=== PATIENT | male | born 1960 | race Two or more races ===

== ENCOUNTER 2018-11-28 14:50 | Outpatient (REF) | payer OTHER, SELFPAY ==
[2018-11-28 21:29] LABS: Anion Gap 14.1 mmol/L (3-11); BUN 13 mg/dL (7-18); CO2 25.9 mmol/L (21.0-32.0); CREATININE 0.93 mg/dL (0.70-1.30); Chloride 99 mmol/L (98-107); Glucose 92 mg/dL (70-100); Potassium 3.4 mmol/L (3.5-5.1); Sodium 139 mmol/L (136-145)
== END 2018-11-28 15:10 ==
LOC: NCHCN 14:50
PROVIDERS: PCP Internal Medicine; Visit Provider Nurse Practitioner Family
DX: I10 Essential (primary) hypertension (principal); E11.9 Type 2 diabetes mellitus without complications
CPT/HCPCS: 80048

== ENCOUNTER 2019-11-24 19:29 | Outpatient (REF) | payer OTHER, SELFPAY ==
[2019-11-24 21:21] LABS: ALT 34 U/L (16-63); AST 24 U/L (15-37); Albumin 4.5 g/dL (3.4-5.0); Alkaline Phosphatase 55 U/L (46-116); Anion Gap 11.1 mmol/L (3-11); BUN 16 mg/dL (7-18); Bilirubin, Total 0.7 mg/dL (0.2-1.0); CO2 25.9 mmol/L (21.0-32.0); CREATININE 0.97 mg/dL (0.70-1.30); Calcium 9.3 mg/dL (8.5-10.1); Calculated LDL 133 mg/dL (<100); Chloride 103 mmol/L (98-107); Cholesterol 237 mg/dL (<200); Glucose 95 mg/dL (74-106); HDL Cholesterol 95 mg/dL (40-60); Potassium 3.5 mmol/L (3.5-5.1); Sodium 140 mmol/L (136-145); Total Protein 7.5 g/dL (6.4-8.2); Triglyceride 49 mg/dL (<150)
== END 2019-11-24 19:49 ==
LOC: NCHCN 19:29
PROVIDERS: PCP Internal Medicine; Visit Provider Nurse Practitioner Family
DX: I10 Essential (primary) hypertension (principal); R73.03 Prediabetes
CPT/HCPCS: 80053; 80061

== ENCOUNTER 2020-09-13 19:22 | Outpatient (REF) | payer OTHER, SELFPAY ==
[2020-09-13 21:23] LABS: Hemoglobin A1C 5.8 % (<5.7)
[2020-09-13 21:47] LABS: ALT 36 U/L (16-63); AST 21 U/L (15-37); Albumin 4.5 g/dL (3.4-5.0); Alkaline Phosphatase 74 U/L (46-116); Anion Gap 10.6 mmol/L (3-11); BUN 16 mg/dL (7-18); Bilirubin, Total 0.7 mg/dL (0.2-1.0); CO2 27.4 mmol/L (21.0-32.0); Calcium 9.1 mg/dL (8.5-10.1); Calculated LDL 138 mg/dL (<100); Chloride 103 mmol/L (98-107); Cholesterol 248 mg/dL (<200); Glucose 107 mg/dL (74-106); HDL Cholesterol 83 mg/dL (40-60); Potassium 3.7 mmol/L (3.5-5.1); Sodium 141 mmol/L (136-145); Total Protein 7.5 g/dL (6.4-8.2); Triglyceride 137 mg/dL (<150)
[2020-09-14 16:50] LABS: PSA, Screening 1.1 ng/mL (0.0-3.5)
== END 2020-09-13 19:23 | disposition home or self-care (01) ==
LOC: NCHCN 19:22
PROVIDERS: PCP Internal Medicine; Visit Provider Nurse Practitioner Family
DX: I10 Essential (primary) hypertension (principal); E66.3 Overweight; Z12.5 Encounter for screening for malignant neoplasm of prostate; Z80.42 Family history of malignant neoplasm of prostate; Z13.1 Encounter for screening for diabetes mellitus
CPT/HCPCS: 80053; 80061; 84153; 83036

== ENCOUNTER 2021-10-20 08:13 | Outpatient (REF) | payer OTHER, SELFPAY ==
[2021-10-20 14:43] LABS: Anion Gap 9.9 mmol/L (3-11); BUN 17 mg/dL (7-18); CO2 28.1 mmol/L (21.0-32.0); CREATININE 1.1 mg/dL (0.70-1.30); Calcium 9.1 mg/dL (8.5-10.1); Calculated LDL 155 mg/dL (<100); Chloride 101 mmol/L (98-107); Cholesterol 251 mg/dL (<200); Glucose 140 mg/dL (74-106); HDL Cholesterol 88 mg/dL (40-60); Potassium 4.2 mmol/L (3.5-5.1); Sodium 139 mmol/L (136-145); Triglyceride 42 mg/dL (<150)
[2021-10-20 22:40] LABS: PSA, Screening 1.3 ng/mL (<=4.5)
== END 2021-10-20 08:14 | disposition home or self-care (01) ==
LOC: NCHCN 08:13
PROVIDERS: PCP Internal Medicine; Visit Provider Nurse Practitioner Family
DX: E78.5 Hyperlipidemia, unspecified (principal); R73.03 Prediabetes; I10 Essential (primary) hypertension; E66.9 Obesity, unspecified; Z12.5 Encounter for screening for malignant neoplasm of prostate; Z80.42 Family history of malignant neoplasm of prostate
CPT/HCPCS: 80048; 80061; 84153

== ENCOUNTER 2022-10-25 09:40 | Outpatient (REF) | payer OTHER, SELFPAY ==
[2022-10-25 15:27] LABS: Hemoglobin A1C 5.7 % (<5.7)
[2022-10-25 15:58] LABS: Anion Gap 7.4 mmol/L (3-11); BUN 14 mg/dL (7-18); CO2 29.6 mmol/L (21.0-32.0); CREATININE 1.2 mg/dL (0.70-1.30); Calcium 9.8 mg/dL (8.5-10.1); Calculated LDL 158 mg/dL (<100); Chloride 104 mmol/L (98-107); Cholesterol 248 mg/dL (<200); Glucose 140 mg/dL (74-106); HDL Cholesterol 81 mg/dL (40-60); Potassium 5.1 mmol/L (3.5-5.1); Sodium 141 mmol/L (136-145); Triglyceride 49 mg/dL (<150)
[2022-10-26 11:18] LABS: PSA, Screening 1.2 ng/mL (<=4.5)
== END 2022-10-25 09:41 | disposition home or self-care (01) ==
LOC: NCHCN 09:40
PROVIDERS: PCP Internal Medicine; Visit Provider Nurse Practitioner Family
DX: Z00.00 Encounter for general adult medical examination without abnormal findings (principal); E78.5 Hyperlipidemia, unspecified; R73.03 Prediabetes; I10 Essential (primary) hypertension; E66.9 Obesity, unspecified
CPT/HCPCS: 80048; 80061; 84153; 83036

== ENCOUNTER 2022-11-30 09:54 | Outpatient (REF) | payer OTHER, SELFPAY ==
[2022-11-30 15:44] LABS: Bilirubin Negative (Negative); Blood Negative (Negative); Clarity Clear (Clear); Glucose Negative (Negative); Ketones Negative (Negative); Leukocyte Esterase Negative (Negative); Nitrite Negative (Negative); Urobilinogen 0.2 mg/dL (Up to 0.2)
[2022-11-30 15:56] LABS: COMMENT (LAB VIEW ONLY) 61.88 mg/dL; Microalb ug/mg Crea 7.1 ug/mg Cr
== END 2022-11-30 09:55 | disposition home or self-care (01) ==
LOC: NCHCN 09:54
PROVIDERS: PCP Internal Medicine; Visit Provider Nurse Practitioner Family
DX: I10 Essential (primary) hypertension (principal); R73.03 Prediabetes; E78.5 Hyperlipidemia, unspecified
CPT/HCPCS: 81003; 82043; 82570

== ENCOUNTER 2023-05-28 10:28 | Outpatient (REF) | payer OTHER, SELFPAY ==
[2023-05-28 15:16] LABS: Hemoglobin A1C 5.7 % (<5.7)
== END 2023-05-28 10:29 | disposition home or self-care (01) ==
LOC: NCHCN 10:28
PROVIDERS: PCP Internal Medicine; Visit Provider Nurse Practitioner Family
DX: R73.03 Prediabetes (principal)
CPT/HCPCS: 83036

== ENCOUNTER 2023-06-26 15:36 | Outpatient (CLI) | payer OTHER, SELFPAY ==
--- NOTE | 2023-06-26 14:30 | DI.RAD_ITS ---
Exam(s) XR SHOULDER LT COMPLETE 2+V EXAM: XR SHOULDER LT COMPLETE 2+V CLINICAL HISTORY: LEFT SHOULDER PAIN. TECHNIQUE: 2D digital imaging was performed of the left shoulder. Two images were obtained. AP and Grashey views were obtained. COMPARISON: No exams were available for comparison FINDINGS: BONES: No acute fracture is present. No bony destructive lesion is seen. JOINTS: No dislocation present. The acromioclavicular and glenohumeral joints are well maintained. SOFT TISSUE: The visualized lungs are clear. IMPRESSION: Unremarkable radiographs of the left shoulder. DATA REPOSITORY: RADIATION DOSE DELIVERED:
--- NOTE | 2023-06-26 14:30 | DI.RAD_ITS ---
Exam(s) XR SHOULDER RT COMPLETE 2+V EXAM: XR SHOULDER RT COMPLETE 2+V CLINICAL HISTORY: RIGHT SHOULDER PAIN. TECHNIQUE: 2D digital imaging was performed of the right shoulder. Two images were obtained. AP an d Grashey views were obtained. COMPARISON: No exams were available for comparison FINDINGS: BONES: No acute fracture is present. No bony destructive lesion is seen. JOINTS: No dislocation present. The joint spaces are well maintained. SOFT TISSUE: The visualized lung is clear. IMPRESSION: Unremarkable radiographs of the right shoulder. DATA REPOSITORY: RADIATION DOSE DELIVERED:
== END 2023-06-26 15:37 | disposition home or self-care (01) ==
LOC: DIORS 15:37
PROVIDERS: PCP Internal Medicine; Visit Provider Student in an Organized Health Care Education/Training Program
DX: M25.512 Pain in left shoulder (principal); M25.511 Pain in right shoulder
CPT/HCPCS: 73030

== ENCOUNTER → 2023-07-02 01:58 | Outpatient (CLI) | payer OTHER, SELFPAY ==
--- NOTE | 2023-07-02 06:45 | DI.MRI_ITS ---
Exam(s) MR UPPER JOINT RT WO EXAM: MR UPPER JOINT RT WO CLINICAL HISTORY: R SHOULDER PAIN,EVAL RUPTURE RT PROX BICEPS TENDON,[id number]. TECHNIQUE: Multiplanar multisequence MRI was performed. COMPARISON: CR XR SHOULDER RT COMPLETE 2+V from 06/26/2023 FINDINGS: BONES: There is no fracture or contusion pattern. There is a subchondral cysts seen in the lesser tub erosity. There is mild edema seen in the greater tuberosity. JOINTS: Mild degenerative changes are seen at the acromioclavicular joint. The glenohumeral joint is normal. TENDONS: Supraspinatus: There is tendinosis of the supraspinatus tendon. There is hyperintense signal seen at the anterior aspect of the supraspinatus tendon at its insertion site consistent with a partial tear . Infraspinatus: Mild tendinosis, no evidence of a tear. Subscapularis: There is tendinosis of the subscapularis tendon. Teres Minor: Unremarkable. Biceps and [place]: There is a tear of the proximal long head of the biceps with tendon fragment seen at the biceps anchor. Only the proximal 2 cm is seen. There is edema around the proximal residual t endon in the region of the rotator interval. The tendon is not visualized in the bicipital groove. MUSCLES: Unremarkable. GLENOID LABRUM: There is some irregularity of the posterior superior labrum. This may represent a te ar or degeneration. SOFT TISSUES: Unremarkable. LIGAMENTS: Unremarkable. OTHER: There is a small amount of fluid seen in the subacromial subdeltoid bursa. IMPRESSION: 1. Tear of the proximal long head of the biceps. Only proximally 2 cm of the tendon is seen near the region of the biceps anchor. There is surrounding edema including within the region of the rotator interval. 2. Partial articular surface tear of the supraspinatus tendon. 3. Tendinosis of the supraspinatus, infraspinatus and subscapularis tendons. 4. Degenerative changes seen at the acromioclavicular joint. DATA REPOSITORY:
== END ==
PROVIDERS: PCP Internal Medicine; Visit Provider Student in an Organized Health Care Education/Training Program
DX: S46.211A Strain of muscle, fascia and tendon of other parts of biceps, right arm, initial encounter (principal)
CPT/HCPCS: 73221

== ENCOUNTER 2023-10-18 18:55 | Outpatient (REF) | payer OTHER, SELFPAY ==
[2023-10-18 16:01] LABS: ALT 35 U/L (16-63); AST 24 U/L (15-37); Albumin 4.8 g/dL (3.4-5.0); Alkaline Phosphatase 77 U/L (46-116); Anion Gap 12.1 mmol/L (3-11); BUN 15 mg/dL (7-18); CO2 27.9 mmol/L (21.0-32.0); CREATININE 1.1 mg/dL (0.70-1.30); Calcium 9.9 mg/dL (8.5-10.1); Calculated LDL 157 mg/dL (<100); Chloride 102 mmol/L (98-107); Cholesterol 258 mg/dL (<200); Glucose 150 mg/dL (74-106); HDL Cholesterol 87 mg/dL (40-60); Potassium 4.7 mmol/L (3.5-5.1); Sodium 142 mmol/L (136-145); Total Protein 8.2 g/dL (6.4-8.2); Triglyceride 70 mg/dL (<150)
[2023-10-18 17:15] LABS: COMMENT (LAB VIEW ONLY) 24.62 mg/dL
[2023-10-18 17:30] LABS: Bilirubin Negative (Negative); Blood Negative (Negative); Clarity Clear (Clear); Glucose Negative (Negative); Ketones Negative (Negative); Leukocyte Esterase Negative (Negative); Nitrite Negative (Negative); Specific Gravity 1.015 (1.005-1.025); Urobilinogen 0.2 mg/dL (Up to 0.2)
--- OUTSIDE RECORDS SUMMARY | 2023-10-18 19:00 | XMS_ITS | Continuity of Care Document ---
Author Organization [place] - [facility] Address [address] [place] [address] Assessment No assessment recorded. Plan of Treatment Reminders Order Date Submit Date Provider Last Modified By Organization Details Last Modified Time Details Appointments Nurse Visit 2023 08:30A M [place] Nursing Staff Not available Not available Not available Follow Up 2023 07:30A M KAVITHA SAAVEDRA Not available Not available Not available DOT/ICC Physical 2024 07:30A M KAVITHA SAAVEDRA Not available Not available Not available Lab None recorded. Referral None recorded. Procedures None recorded. Surgeries None recorded. Imaging None recorded. Medication Orders None recorded. Patient TargetsNo targets recorded. Patient InstructionsNo instructions recorded. Reason for Referral Orthopedic Surgeon Referral for Bilateral shoulder joint pain Referring Physician: Kavitha Saavedra Family Medicine, Encounter Date: 05/29/2023 Problems Name Status Onset Date Resolution Date Notes Provider Name and Address Organization Details Recorded Time Obesity Active 201909/13/2020 - Comments only - Kavitha Saavedra HYDRAULIC JACK ADJUSTER - Enocuraged weight loss through diet and exercise. Check A1C today. Problem Code: E66.9; Problem Code Type: ICD-10; KAVITHA SAAVEDRA APRN [address], [place], [address] , [facility] 04:37:58 Family history of malignant neoplasm of prostate Active 202009/13/2020 - Comments only - Kavitha Saavedra HYDRAULIC JACK ADJUSTER - Check PSA today. Discussed reliability of the test and referral as indicated. Problem Code: Z80.42; Problem Code Type: ICD-10; [address], [place], [address] , [facility] 4 04:37:58 Hyperlipidemia Active 2020 Problem Code: E78.5; Problem Code Type: ICD-10; [address], [place], [address] , [facility] 4 04:37:58 Seasonal allergic rhinitis Active 2021 Problem Code: J30.2; Problem Code Type: ICD-10; [address], [facility] [address] , [facility] 4 04:37:58 General examination of patient Active 201410/23/2022 - Comments only - Kavitha Saavedra HYDRAULIC JACK ADJUSTER - cleared for 1 year based on having HTN. Needs glasses. Certificate provided. Problem Code: Z00.8; Problem Code Type: ICD-10; [address], [place], [address] , [facility] 4 04:37:58 Essential hypertension Active 201509/13/2020 - Comments only - Kavitha Saavedra HYDRAULIC JACK ADJUSTER - Stable. continue medication regimen. Check CMP and lipid panel. Problem Code: I10; Problem Code Type: ICD-10; [address], [place], [address] , [facility] 4 04:37:58 Adult health examination Active 2016 Problem Code: Z00.00; Problem Code Type: ICD-Prince; [address], [facility] [address] , [facility] 4 04:37:58 Prediabetes Active 2017 Problem Code: R73.03; Problem Code Type: ICD-10; [address], [facility] [address] , [facility] 4 04:37:58 COVID-19 Completed 202104/18/2022 Problem Code: U07.1; Problem Code Type: ICD-10; Not Available [facility] 3 05:57:37 Type 2 diabetes mellitus without complication Completed 201712/27/2022 07/23/2018 - Comments only - Kavitha Saavedra APRN - with A1C at 5.1%, diet managed. no indications to start new medications. UTD on foot exam, next in October. UTD on eye exam. Problem Code: E11.9; Problem Code Type: ICD-10; Not Available [facility] 3 05:57:38 Elevated blood-pressure reading without diagnosis of hypertension Completed 201411/12/2015 Problem Code: R03.0; Problem Code Type: ICD-10; Not Available [facility] 3 05:57:38 Acquired trigger finger Completed 201804/18/2022 Problem Code: M65.30; Problem Code Type: ICD-10; Not Available [facility] 3 05:57:38 Bilateral shoulder joint pain Active 2023 KAVITHA SAAVEDRA, NATALIA [address], [place], [address] , [facility] 4 07:47:13 Rupture of tendon of biceps Active 2023 TINO CHAND CMA null, [facility] 4 15:01:39 Pain of left shoulder region Active 2023 TINO CHAND BIOLOGY DEPARTMENT CHAIR null, [facility] 4 15:01:58 Problem Notes None recorded. Medical Equipment None Reported. Allergies Allergen ID Allergen Name Allergen Category Reaction Reaction Severity Criticality Documentation Date Start Date Code Code System Note Provider Name and Address Organization Details Recorded Time 86361 Medicinal product containin g penicilli n and acting as antibacte rial agent (product) medicatio n other mild Not available 02/09/20232007 34438 05 SNOMED GI upset Aller gyCod e: '8340 61'; Aller gyNam e: 'PENI CILLI N'; Aller gyCon ceptT ype: 'RX Norm' ; Aller gyRea ction : 'GI upset '; Not Available [facility] 3 16:29:32 Medications Name Sig Start Date Stop Date Status Note LastModified by Organization Details LastModified Time aspirin 81 mg tablet,mariana yed release TAKE ONE TABLET BY MOUTH ONE TIME DAILY as directed active Not Available Not Available No t Available OneTouch Ultra Test strips Use 1 strip to test as directed three times a day active Not Available Not Available No t Available amlodipine 10 mg tablet TAKE ONE TABLET BY MOUTH ONE TIME DAILY active Not Available Not Available No t Available Norvasc 5 mg tablet Take 1 tab by mouth daily. 2016 active Not Available Not Available Not Avai lable Keflex 500 mg tablet 1 QID 06/01 completed Not Available Not Available Not Available Glucophage XR 500 mg tablet,exte nded release Take 1 tab by mouth daily 07/23 completed Not Available Not Available Not Available hydrochloro thiazide 25 mg tablet TAKE ONE TABLET BY MOUTH ONE TIME DAILY. active Not Available Not Available No t Available Glucophage XR 750 mg tablet,exte nded release Take 1 tab by mouth daily 2017 active Not Available Not Available Not Avai lable OneTouch UltraMini kit Use once a day as directed 2017 active Not Available Not Available Not Avai lable Flowflex COVID-19 Antigen Home Test kit USE TO TEST ONCE, NOT FOR EMPLOYMEN T PURPOSES OR FOR RESALE, FOR INDIVIDUA L USE ONLY. active Not Available Not Available No t Available Vitals Date Recorded Body height Body mass index (BMI) Body weight Body temperature Heart rate Systolic blood pressure Diastolic blood pressure Provider Name and Address Organization Details Last Updated DateTime 4 172.72 cm 28 kg/m2 61894 g 97.7 [degF] 96 /min 146 mm[Hg] 84 mm[Hg] TINO CHAND CMA [place] [facility] 4 08:40:21 Social History Question Answer Notes LastModified by Organizat ion Details LastModified Time Tobacco Smoking Status Never Smoker TINO CHAND CMA null, [facility] 05/29/2023 07:35:54 What Was The Date Of Your Most Recent Tobacco Screening? 05/29/2023 Information not available 05/29/2023 Has Tobacco Cessation Counseling Been Provided? No Information not available 05/29/2023 Do You Or Have You Ever Used Any Other Forms Of Tobacco Or Nicotine? No Information not available 05/29/2023 Sex: Male Functional Status None recorded. Mental Status None recorded. Family History Relationship Description Onset Age of this Age Resolved Age Notes Notes:*Problem: Siblings- br other- elevated PSA and nephews have PSA issues. HTN: no HLD: no CAD: paternal uncles X2 DM: Yes, MGM, PGF Breast CA: no Prostate CA: yes, m uncle Colon CA: no Medical History No medical history recorded. Immunizations Vaccine Type Date Status Provider Name and Address Organization Details Recorded Time COVID-19, mRNA, LNP-S, PF, richard-sucrose, 30 mcg/0.3 mL 04/18/2023 completed Ewelina Foster RN null, [facility] 04/18/2023 09:10:27 Influenza, split virus, quadrivalent, PF 04/18/2023 completed Ewelina Foster RN null, [facility] 04/18/2023 09:15:43 Tdap 10/09/2023 completed TINO CHAND CMA null, [facility] 10/09/2023 09:21:57 Tdap 10/21/2014 completed Not Available [facility] 06:21:44 Influenza, split virus, trivalent, preservative 05/23/2016 completed Not Available [facility] 02/09/2023 06:21:44 Influenza, split virus, quadrivalent, PF 04/07/2022 completed Not Available [facility] 02/09/2023 06:21:45 Influenza, split virus, quadrivalent, PF 05/27/2019 completed Not Available [facility] 02/09/2023 06:21:45 Influenza, split virus, quadrivalent, PF 03/15/2020 completed Not Available [facility] 02/09/2023 06:21:45 Influenza, split virus, quadrivalent, PF 03/22/2021 completed Not Available [facility] 02/09/2023 06:21:45 Influenza, split virus, quadrivalent, preservative 01/29/2018 completed Not Available [facility] 02/09/2023 06:21:45 zoster recombinant 11/24/2019 completed Not Available [facility] 02/09/2023 06:21:45 zoster recombinant 03/15/2020 completed Not Available [facility] 02/09/2023 06:21:45 COVID-19, mRNA, LNP-S, PF, 100 mcg/0.5mL dose or 50 mcg/0.25mL dose 06/20/2020 completed Not Available [facility] 02/09/2023 06:21:46 COVID-19, mRNA, LNP-S, PF, 100 mcg/0.5mL dose or 50 mcg/0.25mL dose 07/18/2020 completed Not Available [facility] 02/09/2023 06:21:46 COVID-19, mRNA, LNP-S, PF, 100 mcg/0.5mL dose or 50 mcg/0.25mL dose 10/31/2021 completed Not Available [facility] 02/09/2023 06:21:46 SARS-COV-2 (COVID-19) vaccine, UNSPECIFIED 02/18/2021 completed Not Available [facility] 02/09/2023 06:21:46 COVID-19, mRNA, LNP-S, bivalent, PF, 30 mcg/0.3 mL dose 04/18/2022 completed Not Available [facility] 02/10/20 06:21:46 pneumococcal polysaccharide PPV23 01/29/2018 completed Not Available [facility] 2022 06:21:46 Past Encounters Encounter ID Performer Location Encounter Start Date Encounter Closed Date Diagnosis/Indication Diagnosis SNOMED-CT Code [id number] KAVITHA SAAVEDRA APRN [address] [address] 10/09/2023 07:24:45 10/09/2023 08:21:13 General examination of patient [id number] TINO CHAND CMA [address] [address] 10/09/2023 07:47:51 10/16/2023 16:31:46 Active or passive immunization [id number] Health Concerns Section Related Observation LastModified by Organization Detai ls LastModified Time None Recorded Concern Status LastModified by Organization Details LastModified Time None Recorded Payers Encounter Date Sequence Insurance Name Policy Number Policy Hodges Covered Member ID Hodges Member ID Guarantor Name 10/09/2023 1 [facility] ([facility] [id number] Hussain Rizzo [id number] Hussain Rizzo Notes Date Note Type Note Provider Name and Address Organization Details Recorded Time 10/09/2023 text/html HPI Notes: 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 KAVITHA SAAVEDRA, HYDRAULIC JACK ADJUSTER [address], [place], [address], [facility], [facility]. 10/09/2023 09:24:45
--- OUTSIDE RECORDS SUMMARY | 2023-10-18 19:00 | XMS_ITS | Clinical Summary ---
Author Organization [facility] Address [address] [place] [address] Care Team Providers Care Sheet Rock Nailer Name Role Phone Unavailable Primary Care Provider Unavailabl e Social History Tobacco Use Types Packs/Day Years Used Date Smoking Tobacco: Never Assessed Sex and Gender Information Value Date Recorded Sex Assigned at Not on file Gender Identity Not on file Sexual Orientation Not on file Plan of Treatment Health Maintenance Due Date Last Done Comments Hepatitis C Screen 1960 RSV Immunization ( o r 60+ Years) (1 - 1-dose 60+ series) 2021 COVID-19 Vaccine (2022-24 season) 2022
--- OUTSIDE RECORDS SUMMARY | 2023-10-18 19:00 | XMS_ITS | Encounter Summary ---
Author Organization [facility] Address [address] [place] [address] Care Team Providers Care Senior Net Web Developer Name Role Phone Unavailable Primary Care Provider Unavailabl e Encounter Details Date Type Department Care Team (Late st Contact Info) Description 09/14/2020 Lab Requisition [facility] Pathology & Laboratory Medicine - [facility] [address] [place] [address] Outr Resulting Lab, Provider Social History Tobacco Use Types Packs/Day Years Used Date Smoking Tobacco: Never Assessed Sex and Gender Information Value Date Recorded Sex Assigned at Not on file Gender Identity Not on file Sexual Orientation Not on file documented as of this encounter Plan of Treatment Not on file documented as of this encounter Procedures Procedure Name Priority Date/Time Associated Diagnosis Comments PSA TOTAL, DIAGNOSTIC Routine 09/13/2020 15:53 EDT documented in this encounter Results * PSA TOTAL, DIAGNOSTIC (09/13/2020 15:53 EDT) PSA 1.1 0.0 - 3.5 ng/mL 09/14/2020 16:46 EDT [facility] Blood VENOUS BLOOD / Unknown 09/13/2020 15:53 EDT 09/14/2020 16:09 EDT Narrative [facility] - 09/14/2020 16:46 EDT NOTE: Serum PSA concentration should not be interpreted as absolute evidence for the presence or absence of malignant disease. Assayed on Siemens ADVIA Centaur XPT using chemiluminescent technology.??Values obtained by using different assay methods cannot be used interchangeably. Provider Outr Resulting Lab CHEMISTRY & BLOOD GAS ORDERABLES [facility] [address] [place] [address] documented in this encounter Visit Diagnoses Not on filedocumented in this encounter
--- OUTSIDE RECORDS SUMMARY | 2023-10-18 19:00 | XMS_ITS | Data Portability ---
Author Organization [place] - [facility] Address [address] [place] [address] Assessment Encounter Date Assessment Date Assessment LastModified by Organization Details LastModified Time 05/29/2023 05/29/2023 Flu vaccine: current Comirnaty: current Td: current PCV20: n/a Shingrix: completed RSV: counseled to get at local pharmacy as desires CRC: declines all screening AAA Screening: n/a Nurse visit in September for: A1C, lipids, CMP, PSA; UA/ MA Not available 05/29/2023 07:57:28 Plan of Treatment Reminders Order Date Submit Date Provider Last Modified By Organization Details Last Modified Time Details Appointments Nurse Visit 2023 08:30A M Luciano Nursing Staff Not available Not available Not available Follow Up 2023 07:30A M ELIZA SAAVEDRA Not available Not available Not available DOT/ICC Physical 2024 07:30A M ELIZA SAAVEDRA Not available Not available Not available Lab HbA1c (hemoglob in A1c), blood - 1P 2023 024 [email or web address] [facility] (Registration ), [address] [place] [address] [place], [address], 06/04/2023 08:58:53 HbA1c (hemoglob in A1c), blood - 1Y, 1P, 1 urine 2023 024 [email or web address] [facility] (Registration ), [address] [place] [address] [place], [address], 10/18/2023 08:38:05 PSA, free, serum or plasma - 1Y, 1P, 1 urine [address] [facility] (Registration ), [address] [place] [address] [facility] [place], [address], 10/18/2023 08:38:05 urinalysi s, complete - 1Y, 1P, 1 urine [address] [facility] (Registration ), [address] [place] [address] [place], [address], 10/18/2023 08:38:05 microalbu min/creat inine, ratio, urine - 1Y, 1P, 1 urine [address] [facility] (Registration ), [address] [place] [address] Dr [facility] [place], [address], 10/18/2023 08:38:05 lipid panel, serum - 1Y, 1P, 1 urine [address] [facility] (Registration ), [address] [place] [address] [place], [address], 10/18/2023 09:00:14 CMP, serum or plasma - 1Y, 1P, 1 urine [address] [facility] (Registration ), [address] [place] [address] Dr [facility] [place], [address], 10/18/2023 08:38:05 urinalysi s, dipstick 2023 024 [facility], [address] [place] [address], [address], 10/09/2023 08:54:59 Referral orthopedi c surgeon referral 2023 024 [facility], [address], [place], [address], 07/18/2023 12:18:27 Procedures None recorded. Surgeries None recorded. Imaging None recorded. Medication Orders None recorded. Patient TargetsNo targets recorded. Patient Instructions Encounter Date Encounter Id Patient Instructions Last Modified By Organization Details Last Modified Time 05/29/2023 [id number] When You Want to Lose Weight: Care Instructions Not available 05/29/2023 08:02:05 starting a weigh t loss plan: care instructions Not available 05/29/2023 08:02:05 learning about obesity Not available 05/29/2023 08:02:05 [facility] weight Not available 05/29/2023 08:02:05 obesity educatio n information Not available 05/29/2023 08:02:04 10/09/2023 [id number] visual acuity* Not available 10/09/2023 08:54:59 Reason for Referral Orthopedic Surgeon Referral for Bilateral shoulder joint pain Referring Physician: Eliza Saavedra, Family Medicine, Encounter Date: 05/29/2023 Results Created Date Observation Date Name Description Value Unit Range Abnormal Flag LastModifiedBy Organization Detail LastModifiedTime 05/28/19 24 05/28/2023 HEMOG LOBIN A1C hemoglobin A1C 5.7 % <5.7 Not Available [facility] [address] [place], [address] 05/28/2023 15:48:02 10/09/19 24 10/09/2023 urina lysis , dipst ick Leukocytes Negati ve Not Available [address], [address], 10/09/2023 08:42:07 10/09/1910/09/2023 urina lysis , dipst ick Nitrite negati ve Not Available [facility] [address] [place], [address], 10/09/2023 08:42:07 10/09/19 24 10/09/2023 urina lysis , dipst ick Urobilinogen .2 Not Available [facility] [address] [place], [address], 10/09/2023 08:42:07 10/09/19 24 10/09/2023 urina lysis , dipst ick Protein Negati ve Not Available [address], [address], 10/09/2023 08:42:07 10/09/19 24 10/09/2023 urina lysis , dipst ick pH 7.0 Not Available [address], [address], 10/09/2023 08:42:07 10/09/19 24 10/09/2023 urina lysis , dipst ick Blood Negati ve Not Available [address], [address], 10/09/2023 08:42:07 10/09/19 24 10/09/2023 urina lysis , dipst ick Specific Clyman 1.005 Not Available [address], [address], 10/09/2023 08:42:07 10/09/19 24 10/09/2023 urina lysis , dipst ick Ketone Negati ve Not Available [address], [address], 10/09/2023 08:42:07 10/09/19 24 10/09/2023 urina lysis , dipst ick Bilirubin Negati ve Not Available [address], [address], 10/09/2023 08:42:07 10/09/19 24 10/09/2023 urina lysis , dipst ick Glucose Negati ve Not Available [address], [address], 10/09/2023 08:42:07 10/09/19 24 10/09/2023 urina lysis , dipst ick Appearance Clear Not Available [address], [address], 10/09/2023 08:42:07 10/09/19 24 10/09/2023 urina lysis , dipst ick Color Pale Yellow Not Available [address], [address], 10/09/2023 08:42:07 10/09/19 24 10/09/2023 visua l acuit y* R Eye Uncorrected 20/40 Not Available [address], [address], 10/09/2023 08:41:22 10/09/19 24 10/09/2023 visua l acuit y* L Eye Uncorrected 20/60 Not Available [address], [address], 10/09/2023 08:41:22 10/09/19 24 10/09/2023 visua l acuit y* Both Uncorrected 20/40 Not Available [address], [address], 10/09/2023 08:41:22 10/09/19 24 10/09/2023 visua l acuit y* R Eye Corrected 20/20 Not Available [address], [address], 10/09/2023 08:41:22 10/09/19 24 10/09/2023 visua l acuit y* L Eye Corrected 20/20 Not Available [address], [address], 10/09/2023 08:41:22 10/09/19 24 10/09/2023 visua l acuit y* Both Corrected 20/16 Not Available [address], [address], 10/09/2023 08:41:22 06/26/1906/26/2023 x-ray imagi ng repor t Patien t Name: Hussain Zendejas Unit #: [id number] Loc: [facility] Orderlupe ng Provid er: Goyo Chahal M.D. Accoun t #: [id number] Status : PRE CLI Primar y Care Provid er: Amber Huston M.D. Date of Exam: Sex: M Admiss ion Date: : 1960 Age: 62 Exam(s ) XR SHOULD ER RT COMPLE TE 2+V EXAM: XR SHOULD ER RT COMPLE TE 2+V CLINIC AL HISTOR Y: RIGHT SHOULD ER PAIN. TECHNI QUE: 2D digita l imagin g was perfor med of the right should er. Two images were obtain ed. AP and Grashe y views were obtain ed. COMPAR KALRENE: No exams were availa ble for compar karlene FINDIN GS: BONES: No acute fractu re is presen t. No bony destru ctive lesion is seen. JOINTS : No disloc ation presen t. The joint spaces are well mainta ined. SOFT TISSUE : The visual ized lung is clear. IMPRES CLARISSA: Unrema rkable radiog raphs of the right should er. DATA REPOSI TORY: RADIAT ION DOSE DELIVE RED: Ordere d By: Goyo Chahal M.D. CC: ------ ------ ------ ------ ------ ------ ------ ------ ------ ------ ------ ------ - Dictat ed By: Panchito Cervantes M.D. 1521 1521 Transc ribed By: Panchito Cervantes 1521 This is privil eged, confid ential inform ation intend ed only for the provid er named. Any use or distri bution by any person other than this provid er is strict ly prohib ited. If you receiv e this report in error, please notify us immedi boyly at and return the origin al report to us at the addres s above. Thank- you. [email or web address] [facility] [address] [place], [address] 06/27/2023 08:46:08 06/26/19 24 06/26/2023 x-ray imagi ng repor t Patien t Name: Hussain Zendejas Unit #: [id number] Loc: DIORS Orderi ng Provid er: Goyo Chahal M.D. Accoun t #: [id number] Status : PRE CLI Primar y Care Provid er: Amber Huston M.D. Date of Exam: Sex: M Admiss ion Date: : 1960 Age: 62 Exam(s ) XR SHOULD ER LT COMPLE TE 2+V EXAM: XR SHOULD ER LT COMPLE TE 2+V CLINIC AL HISTOR Y: LEFT SHOULD ER PAIN. TECHNI QUE: 2D digita l imagin g was perfor med of the left should er. Two images were obtain ed. AP and Grashe y views were obtain ed. COMPAR KARLENE: No exams were availa ble for compar karlene FINDIN GS: BONES: No acute fractu re is presen t. No bony destru ctive lesion is seen. JOINTS : No disloc ation presen t. The acromi oclavi cular and glenoh umeral joints are well mainta ined. SOFT TISSUE : The visual ized lungs are clear. IMPRES CLARISSA: Unrema rkable radiog raphs of the left should er. DATA REPOSI TORY: RADIAT ION DOSE DELIVE RED: Ordere d By: Goyo Chahal M.D. CC: ------ ------ ------ ------ ------ ------ ------ ------ ------ ------ ------ ------ - Dictat ed By: Panchito Cervantes M.D. 1521 1521 Transc ribed By: Panchito Cervantes 1521 This is privil eged, confid ential inform ation intend ed only for the provid er named. Any use or distri bution by any person other than this provid er is strict ly prohib ited. If you receiv e this report in error, please notify us immedi ately at and return the origin al report to us at the addres s above. Thank- you. [email or web address] [facility] [address] [place], [address] 06/27/2023 08:46:09 07/02/19 24 07/02/2023 MRI imagi ng repor t Germán t Name: Hussain Zendejas Unit #: [id number] Loc: DI Orderi ng Provid er: Goyo Chahal M.D. Accoun t #: [id number] Status : REG CLI Primar y Care Provid er: Amber Huston M.D. Date of Exam: Sex: M Admiss ion Date: : 1960 Age: 62 Exam(s ) MR UPPER JOINT RT WO EXAM: MR UPPER JOINT RT WO CLINIC AL HISTOR Y: R SHOULD ER PAIN,E MARTINA RUPTUR E RT PROX BICEPS TENDON ,s46.2 11A. TECHNI QUE: Multip lanar multis equenc e MRI was perfor med. COMPAR KARLENE: CR XR SHOULD ER RT COMPLE TE 2+V from 2023 FINDIN GS: BONES: There is no fractu re or contus ion patter n. There is a subcho ndral cysts seen in the lesser tubero sity. There is mild edema seen in the greate r tubero sity. JOINTS : Mild degene rative change s are seen at the acromi oclavi cular joint. The glenoh umeral joint is normal . TENDON S: Supras pinatu s: There is tendin osis of the supras pinatu s tendon . There is hyperi ntense signal seen at the anteri or aspect of the supras pinatu s tendon at its insert ion site consis tent with a partia l tear. Infras pinatu s: Mild tendin osis, no eviden ce of a tear. Subsca pulari s: There is tendin osis of the subsca pulari s tendon . Teres Minor: Unrema rkable . Biceps and [place] : There is a tear of the proxim al long head of the biceps with tendon fragme nt seen at the biceps anchor . Only the proxim al 2 cm is seen. There is edema around the proxim al residu al tendon in the region of the rotato r interv al. The tendon is not visual ized in the bicipi ana groove . MUSCLE S: Unrema rkable . GLENOI D LABRUM : There is some irregu larity of the service department manager ior superi or labrum . This may repres ent a tear or degene ration . SOFT TISSUE S: Unrema rkable . LIGAME NTS: Unrema rkable . OTHER: There is a small amount of fluid seen in the subacr omial subdel toid bursa. IMPRES CLARISSA: 1. Tear of the proxim al long head of the biceps . Only proxim ally 2 cm of the tendon is seen near the region of the biceps anchor . There is surrou nding edema includ ing within the region of the rotato r interv al. 2. Partia l articu lar surfac e tear of the supras pinatu s tendon . 3. Tendin osis of the supras pinatu s, infras pinatu s and subsca pulari s tendon s. 4. Degene rative change s seen at the acromi oclavi cular joint. DATA REPOSI TORY: Jaylyn veliz By: Goyo Chahal M.D. CC: ------ ------ ------ ------ ------ ------ ------ ------ ------ ------ ------ ------ - Dictat ed By: Panchito Cervantes M.D. 0850 50 Transc ribed By: Panchito Cervantes 849 This is privil eged, confid ential inform ation intend ed only for the provid er named. Any use or distri bution by any person other than this provid er is strict ly prohib ited. If you receiv e this report in error, please notify us immedi lincoln at and return the origin al report to us at the addres s above. Thank- you. [facility] [address], [place], [address] 07/02/2023 15:57:07 Result Notes None recorded. Problems Name Status Onset Date Resolution Date Notes Provider Name and Address Organization Details Recorded Time Obesity Active 201909/13/2020 - Comments only - Eliza Saavedra SALES PROMOTION MANAGER - Enocuraged weight loss through diet and exercise. Check A1C today. Problem Code: E66.9; Problem Code Type: ICD-10; [address], [place], [address] , [facility] 4 04:37:58 Family history of malignant neoplasm of prostate Active 202009/13/2020 - Comments only - Eliza Saavedra SALES PROMOTION MANAGER - Check PSA today. Discussed reliability of the test and referral as indicated. Problem Code: Z80.42; Problem Code Type: ICD-10; [address], [place], [address] , [facility] 4 04:37:58 Hyperlipidemia Active 2020 Problem Code: E78.5; Problem Code Type: ICD-10; [address], [place], [address] , [facility] 4 04:37:58 Seasonal allergic rhinitis Active 2021 Problem Code: J30.2; Problem Code Type: ICD-10; [address], [place], [address] , [facility] 4 04:37:58 General examination of patient Active 201410/23/2022 - Comments only - Eliza Saavedra APRN - cleared for 1 year based on having HTN. Needs glasses. Certificate provided. Problem Code: Z00.8; Problem Code Type: ICD-10; [address], [facility] [address] , [facility] 4 04:37:58 Essential hypertension Active 201509/13/2020 - Comments only - Eliza Saavedra APRN - Stable. continue medication regimen. Check CMP and lipid panel. Problem Code: I10; Problem Code Type: ICD-10; [address], [place] [address] , [facility] 4 04:37:58 Adult health examination Active 2016 Problem Code: Z00.00; Problem Code Type: ICD-10; [address], [place] [address] , [facility] 4 04:37:58 Prediabetes Active 2017 Problem Code: R73.03; Problem Code Type: ICD-10; [address], [place] [address] , [facility] 4 04:37:58 COVID-19 Completed 202104/18/2022 Problem Code: U07.1; Problem Code Type: ICD-10; Not Available [facility] 3 05:57:37 Type 2 diabetes mellitus without complication Completed 201712/27/2022 07/23/2018 - Comments only - Eliza Saavedra APRN - with A1C at 5.1%, diet managed. no indications to start new medications. UTD on foot exam, next in October. UTD on eye exam. Problem Code: E11.9; Problem Code Type: ICD-10; Not Available [facility] 3 05:57:38 Elevated blood-pressure reading without diagnosis of hypertension Completed 201411/12/2015 Problem Code: R03.0; Problem Code Type: ICD-10; Not Available [facility] 3 05:57:38 Acquired trigger finger Completed 201804/18/2022 Problem Code: M65.30; Problem Code Type: ICD-10; Not Available [facility] 3 05:57:38 Bilateral shoulder joint pain Active 2023 ELIZA SAAVEDRA APRN [address], [place], [address] , [facility] 07:47:13 Rupture of tendon of biceps Active 2023 T[facility]OKwame CHAND CMA [facility] 4 15:01:39 Pain of left shoulder region Active 2023 TINO CHAND IT PROGRAM MANAGER null, [facility] 15:01:58 Problem Notes None recorded. Procedures Surgical History None recorded. Imaging Results Imaging Date Name Status LastModified by Organiz [facility] Details LastModified Time 06/26/2023 x-ray imaging report completed [id number] [facility] [place], [address] 06/27/2023 08:46:08 06/26/2023 x-ray imaging report completed [id number] [facility] [place], [address] 06/27/2023 08:46:09 07/02/2023 [facility] imaging report [email or web address] [address] [facility] [place], [address] 07/02/2023 15:57:07 Procedure Notes None recorded. Medical Equipment None Reported. Allergies Allergen ID Allergen Name Allergen Category Reaction Reaction Severity Criticality Documentation Date Start Date Code Code System Note Provider Name and Address Organization Details Recorded Time 57613 Medicinal product containin g penicilli n and acting as antibacte rial agent (product) medicatio n other mild Not available 02/09/20232007 11381 05 SNOMED GI upset Aller gyCod e: '8340 61'; Aller gyNam e: 'PENI CILLI N'; Aller gyCon ceptT ype: 'RX Norm' ; Aller gyRea ction : 'GI upset '; Not Available [facility] 3 16:29:32 Medications Name Sig Start Date [...] t Available Vitals Date Recorded Body height Systolic blood pressure Diastolic blood pressure Provider Name and Address Organization Details Last Updated DateTime 05/28/2023 172.72 cm 148 mm[Hg] 76 mm[Hg] VARSHA NYE [facility] 05/28/2023 09:35:45 Date Recorded Body height Body mass index (BMI) Body weight Oxygen saturation Oxygen saturation in Arterial blood by Pulse oximetry Heart rate Systolic blood pressure Diastolic blood pressure Provider Name and Address Organization Details Last Updated DateTime 4 172.72 cm 27.3 kg/m2 01007.8 3 g 95 % 95 % 72 /min 124 mm[Hg] 72 mm[Hg] TINO CHAND [facility] 4 07:34:00 Date Recorded Body height Body mass index (BMI) Body weight Body temperature Heart rate Systolic blood pressure Diastolic blood pressure Provider Name and Address Organization Details Last Updated DateTime 4 172.72 cm 28 kg/m2 03885 g 97.7 [degF] 96 /min 146 mm[Hg] 84 mm[Hg] TINO CHAND [facility] 4 08:40:21 Date Recorded Body height Systolic blood pressure Diastolic blood pressure Provider Name and Address Organization Details Last Updated DateTime 10/18/2023 172.72 cm 136 mm[Hg] 78 mm[Hg] VARSHA NYE [facility] 10/18/2023 08:37:48 Social History Question Answer Notes LastModified by Organizat ion Details LastModified Time Tobacco Smoking Status Never Smoker TINO CHAND IT PROGRAM MANAGER [facility] 05/29/2023 07:35:54 What Was The Date [...] PF, richard-sucrose, 30 mcg/0.3 mL 04/18/2023 completed SAÚL Ca, [facility] 04/18/2023 09:10:27 Influenza, split virus, quadrivalent, PF 04/18/2023 completed Ewelina Foster RN null, [facility] 04/18/2023 09:15:43 Tdap 10/09/2023 completed TINO CHAND CMA null, [facility] 10/09/2023 09:21:57 Tdap 10/21/2014 completed Not Available [facility] 06:21:44 Influenza, split virus, trivalent, preservative 05/23/2016 completed Not Available [facility] 02/09/2023 06:21:44 Influenza, split virus, quadrivalent, PF 04/07/2022 completed Not Available [facility] 02/09/2023 06:21:45 Influenza, split virus, quadrivalent, PF 05/27/2019 completed Not Available [facility] 02/09/2023 06:21:45 Influenza, split virus, quadrivalent, PF 03/15/2020 completed Not Available [facility] 02/09/2023 06:21:45 Influenza, split virus, quadrivalent, PF 03/22/2021 completed Not Available [facility] 02/09/2023 06:21:45 Influenza, split virus, quadrivalent, preservative 01/29/2018 completed Not Available [facility] 02/09/2023 06:21:45 zoster recombinant 11/24/2019 completed Not Available [facility] 02/09/2023 06:21:45 zoster recombinant 03/15/2020 completed Not Available [facility] 02/09/2023 06:21:45 COVID-19, mRNA, LNP-S, PF, 100 mcg/0.5mL dose or 50 mcg/0.25mL dose 06/20/2020 completed Not Available [facility] 02/09/2023 06:21:46 COVID-19, mRNA, LNP-S, PF, 100 mcg/0.5mL dose or 50 mcg/0.25mL dose 07/18/2020 completed Not Available [facility] 02/09/2023 06:21:46 COVID-19, mRNA, LNP-S, PF, 100 mcg/0.5mL dose or 50 mcg/0.25mL dose 10/31/2021 completed Not Available [facility] 02/09/2023 06:21:46 SARS-COV-2 (COVID-19) vaccine, UNSPECIFIED 02/18/2021 completed Not Available [facility] 02/09/2023 06:21:46 COVID-19, mRNA, LNP-S, bivalent, PF, 30 mcg/0.3 mL dose 04/18/2022 completed Not Available [facility] 02/10/20 06:21:46 pneumococcal polysaccharide PPV23 01/29/2018 completed Not Available [facility] 2022 06:21:46 Past Encounters Encounter ID Performer Location Encounter Start Date Encounter Closed Date Diagnosis/Indication Diagnosis SNOMED-CT Code [id number] Ewelina Foster RN [address] [address] 04/18/2023 08:54:55 04/18/2023 14:59:30 Active or passive immunization 180106332 [id number] VARSHA NYE [address] [address] 05/28/2023 09:27:36 05/28/2023 09:37:54 Prediabetes 210790701 [id number] ELIZA SAAVEDRA [address] [address] 05/29/2023 07:28:20 05/29/2023 08:11:49 Essential hypertension 18474030 Family his tory of malignant neoplasm of prostate 890330851 Prediabetes 702730308 Hyperlipidemia 51833529 Seasonal a llergic rhinitis 378428371 Bilateral shoulder joint pain 736110098652837 04 [id number] ELIZA SAAVEDRA [address] [address] 10/09/2023 07:24:45 10/09/2023 08:21:13 General examination of patient [id number] TINO CHAND [address] [address] 10/09/2023 07:47:51 10/16/2023 16:31:46 Active or passive immunization 971232259 Health Concerns Section Related Observation LastModified by Organization Detai ls LastModified Time None Recorded Concern Status LastModified by Organization Details LastModified Time None Recorded Advance Directives Directive None Recorded Payers Encounter Date Sequence Insurance Name Policy Number Policy Hodges Covered Member ID Hodges Member ID Guarantor Name 05/28/2023 1 [employer] [facility] [facility] [place] [facility] [employer] (PPO) [id number] Hussain K Rizzo [id number] Hussain K Rizzo 05/29/2023 1 [employer] [facility] [facility] [place] [facility] [employer] ([place] [id number] Hussain K Rizzo [id number] Hussain K Rizzo 10/09/2023 1 [employer] [facility] [place] [facility] [employer] ([place] [id number] Hussain K Rizzo [id number] Hussain K Rizzo 10/09/2023 1 [employer] [facility] [place] [facility] [employer] ([place] [id number] Hussain K Rizzo [id number] Hussain K Rizzo Notes Date Note Type Note Provider Name and Address Organization Details Recorded Time 05/29/2023 text/html HPI Notes: Is he re for follow-up: -HTN. Takes HCTZ, Norvasc, asa. -Family hx of prostate CA. Gets annual PSA. -Prediabetes. Overweight. Working on healthy lifestyle. -HLD. Working on healthy lifestyle. -Seasonal allergies. Takes claritin PRN; allergies. - Bilateral shoulder pain. -- Left shoulder pain. 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 over the years it has worsened. Pain is worse with if I yank it, if it gets timothy or jerked. Bothered with these activities, the pain is not daily. Has good movement. Just an ache from time to time. No paresthesia to the hands with use. does not take anything for the pain. -- Right shoulder pain and bicep pain. started fall of 2022. Trauma, lifting a big rock, rolled it, felt a tearing sensation. Pain is with certain activities. Has weakness, loss of strength. The pain can cramp up with overuse. Not able to describe pain further. Pain is better with rest. Has not taken anything for the pain. ELIZA SAAVEDRA, SALES PROMOTION MANAGER [address], [place], [address], [facility]. 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 ELIZA SAAVEDRA, SALES PROMOTION MANAGER [address], [place], [address], [facility]. 10/09/2023 09:24:45
--- OUTSIDE RECORDS SUMMARY | 2023-10-18 19:00 | XMS_ITS | Encounter Summary ---
Author Organization [facility] Address [address] [place] [address] Care Team Providers Care Roll Up Machine Operator Name Role Phone Unavailable Primary Care Provider Unavailabl e Encounter Details Date Type Department Care Team (Late st Contact Info) Description 10/25/2022 Lab Requisition [facility] Pathology & Laboratory Medicine - [facility] [address] [place] [address] Outr Resulting Lab, Provider Social History Tobacco [...] Associated Diagnosis Comments PSA TOTAL, DIAGNOSTIC Routine 10/25/2022 9:25 EDT documented in this encounter Results * PSA TOTAL, DIAGNOSTIC (10/25/2022 9:25 EDT) PSA 1.2 <=4.5 ng/mL 10/26/2022 11:12 EDT [facility] Blood VENOUS BLOOD / Unknown 10/25/2022 9:25 EDT 10/25/2022 21:26 EDT Narrative [facility] - 10/26/2022 11:12 EDT NOTE: Serum PSA concentration should not be interpreted as absolute evidence for the presence or absence of malignant disease. Assayed on Siemens ADVIA Centaur XPT using chemiluminescent technology.??Values obtained by using different assay methods cannot be used interchangeably. Provider Outr Resulting Lab CHEMISTRY & BLOOD GAS ORDERABLES [facility] [address] [place] [address] documented in this encounter Visit Diagnoses Not on filedocumented in this encounter
--- OUTSIDE RECORDS SUMMARY | 2023-10-18 19:00 | XMS_ITS | Encounter Summary ---
Author Organization [facility] Address [address] [place] [address] Care Team Providers Care Phlebotomy Services Representative Name Role Phone Unavailable Primary Care Provider Unavailabl e Encounter Details Date Type Department Care Team (Late st Contact Info) Description 10/20/2021 Lab Requisition [facility] Pathology & Laboratory Medicine - [facility] [address] [place] [address] Outr Resulting Lab, Provider Social History Tobacco [...] Associated Diagnosis Comments PSA TOTAL, DIAGNOSTIC Routine 10/20/2021 8:00 EDT documented in this encounter Results * PSA TOTAL, DIAGNOSTIC (10/20/2021 8:00 EDT) PSA 1.3 <=4.5 ng/mL 10/20/2021 22:36 EDT [facility] Blood VENOUS BLOOD / Unknown 10/20/2021 8:00 EDT 10/20/2021 21:24 EDT Narrative [facility] - 10/20/2021 22:36 EDT NOTE: Serum PSA concentration should not be interpreted as absolute evidence for the presence or absence of malignant disease. Assayed on Siemens ADVIA Centaur XPT using chemiluminescent technology.??Values obtained by using different assay methods cannot be used interchangeably. Provider Outr Resulting Lab CHEMISTRY & BLOOD GAS ORDERABLES [facility] [address] [place] [address] documented in this encounter Visit Diagnoses Not on filedocumented in this encounter
--- OUTSIDE RECORDS SUMMARY | 2023-10-18 19:00 | XMS_ITS | Referral Summary ---
Author Organization [facility] Address [address] [place] [address] Care Team Providers Care Medical Insurance Claims Processor Name Role Phone Unavailable Primary Care Provider Unavailabl e Social History Tobacco Use Types Packs/Day Years Used Date Smoking Tobacco: Never Assessed Sex and Gender Information Value Date Recorded Sex Assigned at Not on file Gender Identity Not on file Sexual Orientation Not on file Plan of Treatment Not on file
--- OUTSIDE RECORDS SUMMARY | 2023-10-18 19:00 | XMS_ITS | Continuity of Care Document ---
Author Organization [place] [facility] Address [address] [place] [address] Assessment No assessment recorded. Plan of Treatment Reminders Order Date Submit Date Provider Last Modified By Organization Details Last Modified Time Details Appointments Nurse Visit 2023 08:30A M [facility] Nursing Staff Not available Not available Not available Follow Up 2023 07:30A M KAVITHA KERI Not available Not available Not available DOT/ICC Physical 2024 07:30A M KAVITHA KERI Not available Not available Not available Lab urinalysi s, dipstick 2023 024 [email or web address] [facility], [address] [place] [address], [id number], 10/09/2023 08:54:59 Referral None recorded. Procedures None recorded. Surgeries None recorded. Imaging None recorded. Medication Orders None recorded. Patient TargetsNo targets recorded. Patient Instructions Encounter Date Encounter Id Patient Instructions Last Modified By Organization Details Last Modified Time 10/09/2023 [id number] visual acuity* [email or web address] Not available 10/09/2023 08:54:59 Reason for Referral Orthopedic Surgeon Referral for Bilateral shoulder joint pain Referring Physician: Kavitha Saavedra, Family Medicine, Encounter Date: 05/29/2023 Results Created Date Observation Date Name Description Value Unit Range Abnormal Flag LastModifiedBy Organization Detail LastModifiedTime 10/09/1910/09/2023 urina lysis , dipst ick Leukocytes Negati ve Not Available [address], [address], 10/09/2023 08:42:07 10/09/19 24 10/09/2023 urina lysis , dipst ick Nitrite negati ve Not Available [address], [address], 10/09/2023 08:42:07 10/09/19 24 10/09/2023 urina lysis , dipst ick Urobilinogen .2 Not Available [address], [address], 10/09/2023 08:42:07 10/09/19 24 10/09/2023 urina lysis , dipst ick Protein Negati ve Not Available [address], [address], 10/09/2023 08:42:07 10/09/1910/09/2023 urina lysis , dipst ick pH 7.0 Not Available [address], [address], 10/09/2023 08:42:07 10/09/1910/09/2023 urina lysis , dipst ick Blood Negati ve Not Available [address], [address], 10/09/2023 08:42:07 10/09/1910/09/2023 urina lysis , dipst ick Specific Adona 1.005 Not Available [address], [address], 10/09/2023 08:42:07 10/09/1910/09/2023 urina lysis , dipst ick Ketone Negati ve Not Available [address], [address], 10/09/2023 08:42:07 10/09/19 24 10/09/2023 urina lysis , dipst ick Bilirubin Negati ve Not Available [address], [address], 10/09/2023 08:42:07 10/09/19 24 10/09/2023 urina lysis , dipst ick Glucose Negati ve Not Available [address], [address], 10/09/2023 08:42:07 10/09/19 24 10/09/2023 urina lysis , dipst ick Appearance Clear Not Available [address], [address], 10/09/2023 08:42:07 10/09/19 24 10/09/2023 urina lysis , dipst ick Color Pale Yellow Not Available [address], [address], 10/09/2023 08:42:07 10/09/19 24 10/09/2023 visua l acuit y* R Eye Uncorrected 20/40 Not Available [address], [address], 10/09/2023 08:41:22 10/09/19 24 10/09/2023 visua l acuit y* L Eye Uncorrected 20/60 Not Available [address], [address], 10/09/2023 08:41:22 10/09/19 24 10/09/2023 visua l acuit y* Both Uncorrected 20/40 Not Available [address], [address], 10/09/2023 08:41:22 10/09/19 24 10/09/2023 visua l acuit y* R Eye Corrected 20/20 Not Available [address], [address], 10/09/2023 08:41:22 10/09/19 24 10/09/2023 visua l acuit y* L Eye Corrected 20/20 Not Available [facility] [address] [place], [address], 10/09/2023 08:41:22 10/09/19 24 10/09/2023 visua l acuit y* Both Corrected 20/16 Not Available [facility] [address] [place], [address], 10/09/2023 08:41:22 Result Notes None recorded. Problems Name Status Onset Date Resolution Date Notes Provider Name and Address Organization Details Recorded Time Obesity Active 201909/13/2020 - Comments only - Kavitha Saavedra FISHERY BIOLOGIST - Enocuraged weight loss through diet and exercise. Check A1C today. Problem Code: E66.9; Problem Code Type: ICD-10; [address], [place], [address] , [facility] 4 04:37:58 Family history of malignant neoplasm of prostate Active 202009/13/2020 - Comments only - Kavitha Saavedra APRN - Check PSA today. Discussed reliability of the test and referral as indicated. Problem Code: Z80.42; Problem Code Type: ICD-10; [address], [place], [address] , [facility] 4 04:37:58 Hyperlipidemia Active 2020 Problem Code: E78.5; Problem Code Type: ICD-Prince; [address], [place], [address] , [facility] 4 04:37:58 Seasonal allergic rhinitis Active 2021 Problem Code: J30.2; Problem Code Type: ICD-10; [address], [facility] [address] , [facility] 4 04:37:58 General examination of patient Active 201410/23/2022 - Comments only - Kavitha Saavedra APRN - cleared for 1 year based on having HTN. Needs glasses. Certificate provided. Problem Code: Z00.8; Problem Code Type: ICD-10; [address], [facility] [address] , [facility] 4 04:37:58 Essential hypertension Active 201509/13/2020 - Comments only - Kavitha Saaverda APRN - Stable. continue medication regimen. Check CMP and lipid panel. Problem Code: I10; Problem Code Type: ICD-10; [address], [facility] [address] , [facility] 4 04:37:58 Adult health examination Active 2016 Problem Code: Z00.00; Problem Code Type: ICD-10; [address], [facility] [address] , [facility] 4 04:37:58 Prediabetes Active 2017 Problem Code: R73.03; Problem Code Type: ICD-10; [address], [facility] [address] , [facility] 4 04:37:58 COVID-19 Completed 202104/18/2022 Problem Code: U07.1; Problem Code Type: ICD-10; Not Available [facility] 3 05:57:37 Type 2 diabetes mellitus without complication Completed 201712/27/2022 07/23/2018 - Comments only - Kavitha Saavedra APRN - with A1C at 5.1%, diet managed. no indications to start new medications. UTD on foot exam, next in October. UTD on eye exam. Problem Code: E11.9; Problem Code Type: ICD-10; Not Available [facility] 3 05:57:38 Elevated blood-pressure reading without diagnosis of hypertension Completed 201411/12/2015 Problem Code: R03.0; Problem Code Type: ICD-10; Not Available [facility] 3 05:57:38 Acquired trigger finger Completed 201804/18/2022 Problem Code: M65.30; Problem Code Type: ICD-10; Not Available [facility] 3 05:57:38 Bilateral shoulder joint pain Active 2023 KAVITHA SAAVEDRA, FISHERY BIOLOGIST [address], [place], [address] , [facility] 4 07:47:13 Rupture of tendon of biceps Active 2023 TINO CHAND MARKETING PROJECT LEAD null, [facility] 4 15:01:39 Pain of left shoulder region Active 2023 TINO CHAND, MARKETING PROJECT LEAD null, [facility] 4 15:01:58 Problem Notes None recorded. Medical Equipment None Reported. Allergies Allergen ID Allergen Name Allergen Category Reaction Reaction Severity Criticality Documentation Date Start Date Code Code System Note Provider Name and Address Organization Details Recorded Time 72596 Medicinal product containin g penicilli n and acting as antibacte rial agent (product) medicatio n other mild Not available 02/09/20232007 02505 05 SNOMED GI upset Aller gyCod e: '8340 61'; Aller gyNam e: 'PENI CILLI N'; Aller gyCon ceptT ype: 'RX Norm' ; Aller gyRea ction : 'GI upset '; Not Available [facility] 3 16:29:32 Medications Name Sig Start Date Stop Date Status Note LastModified by Organization Details LastModified Time aspirin 81 mg tablet,mariana yed release TAKE ONE TABLET BY MOUTH ONE TIME DAILY as directed active Not Available Not Available No t Available [employer].comTouch Ultra Test strips Use 1 strip to [...] Updated DateTime 4 172.72 cm 28 kg/m2 45210 g 97.7 [degF] 96 /min 146 mm[Hg] 84 mm[Hg] TINO CHAND CMA [facility] 4 08:40:21 Social History Question Answer Notes LastModified by Organizat ion Details LastModified Time Tobacco Smoking Status Never Smoker TINO CHAND CMA null, [facility] 05/29/2023 07:35:54 What Was The Date Of [...] mL 04/18/2023 completed Ewelina Foster RN null, [facility] 04/18/2023 09:10:27 Influenza, split virus, quadrivalent, PF 04/18/2023 completed Ewelina Foster RN null, [facility] 04/18/2023 09:15:43 Tdap 10/09/2023 completed TINO CHAND CMA null, [facility] 10/09/2023 09:21:57 Tdap 10/21/2014 completed Not Available [facility] 06:21:44 Influenza, split virus, trivalent, preservative 05/23/2016 completed Not Available [facility] 02/09/2023 06:21:44 Influenza, split virus, quadrivalent, PF 04/07/2022 completed Not Available [facility] 02/09/2023 06:21:45 Influenza, split virus, quadrivalent, PF 05/27/2019 completed Not Available [facility] 02/09/2023 06:21:45 Influenza, split virus, quadrivalent, PF 03/15/2020 completed Not Available [facility] 02/09/2023 06:21:45 Influenza, split virus, quadrivalent, PF 03/22/2021 completed Not Available [facility] 02/09/2023 06:21:45 Influenza, split virus, quadrivalent, preservative 01/29/2018 completed Not Available [facility] 02/09/2023 06:21:45 zoster recombinant 11/24/[address] [facility] 02/09/2023 06:21:45 zoster recombinant 03/15/[address] [facility] 02/09/2023 06:21:45 COVID-19, mRNA, LNP-S, PF, 100 mcg/0.5mL dose or 50 mcg/0.25mL dose 06/20/2020 completed Not Available [facility] 02/09/2023 06:21:46 COVID-19, mRNA, LNP-S, PF, 100 mcg/0.5mL dose or 50 mcg/0.25mL dose 07/18/2020 completed Not Available [facility] 02/09/2023 06:21:46 COVID-19, mRNA, LNP-S, PF, 100 mcg/0.5mL dose or 50 mcg/0.25mL dose 10/31/2021 completed Not Available [facility] 02/09/2023 06:21:46 SARS-COV-2 (COVID-19) vaccine, UNSPECIFIED 02/18/2021 completed Not Available [facility] 02/09/2023 06:21:46 COVID-19, mRNA, LNP-S, bivalent, PF, 30 mcg/0.3 mL dose 04/18/2022 completed Not Available [facility] 02/10/20 06:21:46 pneumococcal polysaccharide PPV23 01/29/2018 completed Not Available [facility] 2022 06:21:46 Past Encounters Encounter ID Performer Location Encounter Start Date Encounter Closed Date Diagnosis/Indication Diagnosis SNOMED-CT Code [id number] KAVITHA SAAVEDRA APRN [address] [address] 10/09/2023 07:24:45 10/09/2023 08:21:13 General examination of patient [id number] TINO CHAND CMA [address] [address] 10/09/2023 07:47:51 10/16/2023 16:31:46 Active or passive immunization [id number] Health Concerns Section Related Observation LastModified by Organization Detai ls LastModified Time None Recorded Concern Status LastModified by Organization Details LastModified Time None Recorded Payers Encounter Date Sequence Insurance Name Policy Number Policy Hodges Covered Member ID Hodges Member ID Guarantor Name 10/09/2023 1 [facility] [id number] Hussain Rizzo [id number] Hussain Rizzo Notes Date Note Type Note Provider Name and Address Organization Details Recorded Time 10/09/2023 text/html HPI Notes: 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 KAVITHA SAAVEDRA, FISHERY BIOLOGIST [address], [place], [address], [facility]. 10/09/2023 09:24:45
== END 2023-10-18 18:56 | disposition home or self-care (01) ==
LOC: NCHCN 18:55
PROVIDERS: PCP Nurse Practitioner Family; Visit Provider Nurse Practitioner Family
DX: I10 Essential (primary) hypertension (principal); E78.5 Hyperlipidemia, unspecified; R73.03 Prediabetes; Z12.5 Encounter for screening for malignant neoplasm of prostate; Z80.42 Family history of malignant neoplasm of prostate
CPT/HCPCS: 80053; 80061; 81003; 82043; 82570; 83036; 84154

== ENCOUNTER 2024-09-08 12:03 | Outpatient (REF) | payer OTHER, SELFPAY ==
[2024-09-08 16:37] LABS: ALT 37 U/L (16-63); AST 22 U/L (15-37); Albumin 4.4 g/dL (3.4-5.0); Alkaline Phosphatase 87 U/L (46-116); Anion Gap 9.9 mmol/L (3-11); BUN 17 mg/dL (7-18); Bilirubin, Total 0.7 mg/dL (0.2-1.0); CO2 27.1 mmol/L (21.0-32.0); CREATININE 1.1 mg/dL (0.70-1.30); Calcium 9.2 mg/dL (8.5-10.1); Calculated LDL 148 mg/dL (<100); Chloride 101 mmol/L (98-107); Cholesterol 232 mg/dL (<200); Glucose 152 mg/dL (74-106); HDL Cholesterol 73 mg/dL (>or=40); Potassium 4.1 mmol/L (3.5-5.1); Sodium 138 mmol/L (136-145); Total Protein 7.6 g/dL (6.4-8.2); Triglyceride 55 mg/dL (<150)
[2024-09-08 23:07] LABS: PSA, Screening 1.5 ng/mL (<=4.5)
== END 2024-09-08 12:04 | disposition home or self-care (01) ==
LOC: NCHCN 12:03
PROVIDERS: PCP Nurse Practitioner Family; Visit Provider Nurse Practitioner Family
DX: I10 Essential (primary) hypertension (principal); Z80.42 Family history of malignant neoplasm of prostate
CPT/HCPCS: 80053; 80061; 84153

== ENCOUNTER 2025-03-12 09:33 | Outpatient (REF) | payer OTHER, SELFPAY | END 2025-03-12 09:34 | disposition home or self-care (01) | LOC: NCHCN 09:33 | PROVIDERS: PCP Nurse Practitioner Family; Visit Provider Nurse Practitioner Family | DX: I10 Essential (primary) hypertension (principal) | CPT/HCPCS: 82043; 82570 ==